=== PATIENT | male | born 1965 | race Caucasian/White ===

== ENCOUNTER 2016-10-12 09:54 | Outpatient (CLI) | payer BC, OTHER ==
[2016-10-12 13:28] LABS: BASOPHILS % (AUTO) 0.4 %; EOSINOPHILS # (AUTO) 0.2 10^3/uL (0.0-0.7); EOSINOPHILS % (AUTO) 3.4 %; HCT - HEMATOCRIT 43.9 % (42.0-52.0); HGB - HEMOGLOBIN 14.8 g/dL (14.0-18.0); LYMPHOCYTES # (AUTO) 1.3 10^3/uL (1.5-3.5); LYMPHOCYTES % (AUTO) 20.8 %; MEAN CORPUSCULAR HEMOGLOBIN 29.2 pg (27.0-31.0); MEAN CORPUSCULAR HGB CONC 33.7 g/dL (32.0-36.0); MEAN CORPUSCULAR VOLUME 86.6 fL (80.0-94.0); MEAN PLATELET VOLUME 8.9 fL (7.4-11.4); MONOCYTES # (AUTO) 0.5 10^3/uL (0.0-1.0); MONOCYTES % (AUTO) 7.7 %; NEUTROPHILS # (AUTO) 4.1 10^3/uL (1.5-6.6); NEUTROPHILS % (AUTO) 67.7 %; RED BLOOD COUNT 5.07 10^6/uL (4.70-6.10); RED CELL DISTRIBUTION WIDTH 13.8 % (12.0-15.0)
[2016-10-12 13:35] LABS: HEMOGLOBIN A1C 0.62 g/dL
[2016-10-12 13:55] LABS: ALBUMIN/GLOBULIN RATIO 2.4 (1.0-2.2); BILIRUBIN,TOTAL 0.9 mg/dL (0.2-1.0); BUN - BLOOD UREA NITROGEN 14 mg/dL (6-20); CALCIUM 9.4 mg/dL (8.5-10.3); CARBON DIOXIDE - CO2 28 mmol/L (21-32); CHLORIDE 102 mmol/L (101-111); CHOL/HDL RATIO 5.9 (<5.0); CHOLESTEROL 218 mg/dL; GFR - MDRD 78 (>89); GLUCOSE 114 mg/dL (70-100); HDL CHOLESTEROL 37 mg/dL; LDL/HDL RATIO 3.9 (<3.6); POTASSIUM 4.2 mmol/L (3.5-5.0); SODIUM 139 mmol/L (135-145); TOTAL PROTEIN 6.7 g/dL (6.7-8.2); TRIGLYCERIDES 181 mg/dL; VLDL CHOLESTEROL 36 mg/dL
[2016-10-12 13:58] LABS: THYROID STIMULATING HORMONE 5.96 uIU/mL (0.34-5.60)
== END 2016-10-12 09:55 | disposition home or self-care (01) ==
LOC: LAB.WCP 09:54
PROVIDERS: ATTEND Family Medicine
DX: R42 Dizziness and giddiness (principal); R53.83 Other fatigue; E78.5 Hyperlipidemia, unspecified
CPT/HCPCS: 36415; 80053; 80061; 83036; 84439; 84443; 84481; 85025

== ENCOUNTER 2017-08-12 08:00 | Outpatient (CLI) | payer BC, OTHER ==
[2017-08-12 12:45] LABS: BASOPHILS % (AUTO) 0.4 %; EOSINOPHILS # (AUTO) 0.1 10^3/uL (0.0-0.7); EOSINOPHILS % (AUTO) 1.7 %; HGB - HEMOGLOBIN 14.4 g/dL (14.0-18.0); LYMPHOCYTES # (AUTO) 1.2 10^3/uL (1.5-3.5); LYMPHOCYTES % (AUTO) 22.7 %; MEAN CORPUSCULAR HEMOGLOBIN 29.6 pg (27.0-31.0); MEAN CORPUSCULAR HGB CONC 34.6 g/dL (32.0-36.0); MEAN CORPUSCULAR VOLUME 85.4 fL (80.0-94.0); MEAN PLATELET VOLUME 8.4 fL (7.4-11.4); MONOCYTES # (AUTO) 0.4 10^3/uL (0.0-1.0); MONOCYTES % (AUTO) 8.4 %; NEUTROPHILS # (AUTO) 3.5 10^3/uL (1.5-6.6); NEUTROPHILS % (AUTO) 66.8 %; PLT - PLATELET COUNT 142 10^3/uL (130-450); RED BLOOD COUNT 4.87 10^6/uL (4.70-6.10); RED CELL DISTRIBUTION WIDTH 14.1 % (12.0-15.0); WHITE BLOOD COUNT 5.2 x10^3/uL (4.8-10.8)
[2017-08-12 13:07] LABS: ALBUMIN 4.6 g/dL (3.2-5.5); ALBUMIN/GLOBULIN RATIO 2.7 (1.0-2.2); ALKALINE PHOSPHATASE 36 IU/L (42-121); ALT ALANINE AMINOTRANSFERASE 53 IU/L (10-60); AST ASPARTATE AMINOTRANSFERASE 25 IU/L (10-42); BILIRUBIN,TOTAL 0.6 mg/dL (0.2-1.0); BUN - BLOOD UREA NITROGEN 19 mg/dL (6-20); CALCIUM 8.7 mg/dL (8.5-10.3); CARBON DIOXIDE - CO2 26 mmol/L (21-32); CHLORIDE 104 mmol/L (101-111); CHOL/HDL RATIO 7.5 (<5.0); CHOLESTEROL 233 mg/dL; GFR - MDRD 78 (>89); GLUCOSE 122 mg/dL (70-100); HDL CHOLESTEROL 31 mg/dL; LDL CHOLESTEROL,CALCULATED 155 mg/dL; SODIUM 137 mmol/L (135-145); THYROID STIMULATING HORMONE 6.08 uIU/mL (0.34-5.60); TOTAL PROTEIN 6.3 g/dL (6.7-8.2); VLDL CHOLESTEROL 47 mg/dL
[2017-08-12 14:09] LABS: FREE T4 (FREE THYROXINE) 0.64 ng/dL (0.58-1.64)
== END 2017-08-12 08:01 | disposition home or self-care (01) ==
LOC: LAB.WCP 08:00
PROVIDERS: ATTEND Family Medicine
DX: R63.5 Abnormal weight gain (principal); R53.83 Other fatigue; R41.3 Other amnesia
CPT/HCPCS: 36415; 80053; 80061; 81599; 82607; 83721; 83921; 84402; 84403; 84439; 84443; 85025

== ENCOUNTER 2018-05-24 15:42 | Outpatient (CLI) | payer BC, OTHER | END 2018-05-24 15:43 | disposition home or self-care (01) | LOC: SC 15:42 | PROVIDERS: ATTEND Nurse Practitioner Family | DX: G47.33 Obstructive sleep apnea (adult) (pediatric) (principal); R23.8 Other skin changes; R03.0 Elevated blood-pressure reading, without diagnosis of hypertension | CPT/HCPCS: 99212; 99215 ==

== ENCOUNTER 2018-07-26 15:46 | Outpatient (CLI) | payer BC, OTHER | END 2018-07-26 15:47 | disposition home or self-care (01) | LOC: SC 15:46 | PROVIDERS: ATTEND Nurse Practitioner Family | DX: G47.33 Obstructive sleep apnea (adult) (pediatric) (principal); I10 Essential (primary) hypertension | CPT/HCPCS: 99212; 99214 ==

== ENCOUNTER 2018-11-17 07:12 | Outpatient (CLI) | payer BC, OTHER ==
[2018-11-17 12:30] LABS: BASOPHILS % (AUTO) 0.7 %; EOSINOPHILS # (AUTO) 0.2 10^3/uL (0.0-0.7); EOSINOPHILS % (AUTO) 2.8 %; HGB - HEMOGLOBIN 14.2 g/dL (14.0-18.0); LYMPHOCYTES # (AUTO) 1.3 10^3/uL (1.5-3.5); LYMPHOCYTES % (AUTO) 22.2 %; MEAN CORPUSCULAR HEMOGLOBIN 28.6 pg (27.0-31.0); MEAN CORPUSCULAR HGB CONC 31.9 g/dL (32.0-36.0); MEAN CORPUSCULAR VOLUME 89.7 fL (80.0-94.0); MONOCYTES # (AUTO) 0.4 10^3/uL (0.0-1.0); MONOCYTES % (AUTO) 6.5 %; NEUTROPHILS # (AUTO) 4.1 10^3/uL (1.5-6.6); NEUTROPHILS % (AUTO) 67.5 %; PLT - PLATELET COUNT 179 10^3/uL (130-450); RED BLOOD COUNT 4.96 10^6/uL (4.70-6.10); RED CELL DISTRIBUTION WIDTH 13.9 % (12.0-15.0)
[2018-11-17 13:32] LABS: FREE T4 (FREE THYROXINE) 0.83 ng/dL (0.58-1.64)
[2018-11-17 14:15] LABS: ALBUMIN 4.2 g/dL (3.2-5.5); ALBUMIN/GLOBULIN RATIO 1.8 (1.0-2.2); ALKALINE PHOSPHATASE 52 IU/L (42-121); ALT ALANINE AMINOTRANSFERASE 38 IU/L (10-60); AST ASPARTATE AMINOTRANSFERASE 19 IU/L (10-42); BILIRUBIN,TOTAL 0.4 mg/dL (0.2-1.0); BUN - BLOOD UREA NITROGEN 19 mg/dL (6-20); CALCIUM 8.9 mg/dL (8.5-10.3); CARBON DIOXIDE - CO2 25 mmol/L (21-32); CHLORIDE 105 mmol/L (101-111); CHOL/HDL RATIO 5.5 (<5.0); CHOLESTEROL 202 mg/dL; CREATININE 0.9 mg/dL (0.6-1.2); GFR - MDRD 88 (>89); GLUCOSE 103 mg/dL (70-100); HDL CHOLESTEROL 37 mg/dL; LDL CHOLESTEROL,CALCULATED 115 mg/dL; LDL/HDL RATIO 3.1 (<3.6); SODIUM 140 mmol/L (135-145); TOTAL PROTEIN 6.5 g/dL (6.7-8.2); VLDL CHOLESTEROL 50 mg/dL
== END 2018-11-17 07:13 | disposition home or self-care (01) ==
LOC: LAB.WCP 07:12
PROVIDERS: ATTEND Family Medicine
DX: I10 Essential (primary) hypertension (principal); Z12.5 Encounter for screening for malignant neoplasm of prostate; R53.83 Other fatigue; G47.33 Obstructive sleep apnea (adult) (pediatric)
CPT/HCPCS: 36415; 80053; 80061; 83721; 84153; 84439; 84443; 85025

== ENCOUNTER 2019-03-23 12:25 | Outpatient (CLI) | payer BC, OTHER | END 2019-03-23 23:59 | disposition home or self-care (01) | LOC: LAB.R 12:25 | PROVIDERS: ATTEND Family Medicine | DX: R30.0 Dysuria (principal) | CPT/HCPCS: 87086 ==

== ENCOUNTER 2019-06-11 17:53 | Emergency (ER) | payer BC, OTHER ==
[2019-06-11 18:38] LABS: BASOPHILS % (AUTO) 0.2 %; EOSINOPHILS # (AUTO) 0.1 10^3/uL (0.0-0.7); EOSINOPHILS % (AUTO) 2.1 %; HGB - HEMOGLOBIN 15.3 g/dL (14.0-18.0); LYMPHOCYTES # (AUTO) 1.5 10^3/uL (1.5-3.5); LYMPHOCYTES % (AUTO) 26.5 %; MEAN CORPUSCULAR HEMOGLOBIN 29.4 pg (27.0-31.0); MEAN CORPUSCULAR HGB CONC 34.1 g/dL (32.0-36.0); MEAN CORPUSCULAR VOLUME 86.2 fL (80.0-94.0); MEAN PLATELET VOLUME 9.9 fL (7.4-11.4); MONOCYTES # (AUTO) 0.4 10^3/uL (0.0-1.0); MONOCYTES % (AUTO) 7.4 %; NEUTROPHILS # (AUTO) 3.6 10^3/uL (1.5-6.6); NEUTROPHILS % (AUTO) 63.1 %; PLT - PLATELET COUNT 162 10^3/uL (130-450); RED BLOOD COUNT 5.21 10^6/uL (4.70-6.10); RED CELL DISTRIBUTION WIDTH 12.9 % (12.0-15.0); WHITE BLOOD COUNT 5.7 x10^3/uL (4.8-10.8)
--- NOTE | 2019-06-11 18:48 | XRAY Report ---
Reason: Chest pain Procedure Date: 06/11/2019 Accession Number: [id number] / [id number] Procedure: XR - Chest 1 View X-Ray CPT Code: 65466 Final Report FULL RESULT: EXAM: CHEST RADIOGRAPHY EXAM DATE: 06/11/2019 06:09 PM. CLINICAL HISTORY: Chest pain. COMPARISON: None. TECHNIQUE: 1 view. FINDINGS: Lungs/Pleura: No focal opacities evident. No pleural effusion. No pneumothorax. Mediastinum: Within exam limitations, the cardiomediastinal contour is normal. Other: None. IMPRESSION: Normal single view chest. [facility]
[2019-06-11 18:53] LABS: ALBUMIN 4.5 g/dL (3.2-5.5); BILIRUBIN,TOTAL 0.8 mg/dL (0.2-1.0); CALCIUM 9.3 mg/dL (8.5-10.3); CREATININE 0.9 mg/dL (0.6-1.2); TOTAL PROTEIN 6.8 g/dL (6.7-8.2)
[2019-06-11] MEDS ORDERED: ASPIRIN CHEW 81 MG TABLET PO STA (19:52)
--- NOTE | 2019-06-11 20:00 | ED Physician Documentation ---
PD HPI CHEST PAIN - Stated complaint Stated Complaint: FRANCIS SOA - PCP REFERRAL - Chief complaint Chief Complaint: Cardiac - History obtained from History obtained from: Patient, Family - History of Present Illness Timing - details: Gradual onset, Intermittant Pain level max: 2 Pain level now: 0 Quality: Tightness Location: Substernal Radiation: No: Jaw, Neck, Back, Abdominal, Left upper extremity, Right upper extremity Improved by: Rest Worsened by: Exertion Associated symptoms: Shortness of air. No: Diaphoresis, Nausea, Vomiting, Feeling faint / dizzy, General Weakness, Palpitations, Cough Recently seen: Clinic (Today for same) - Additional information Additional information: 53-year-old male presents to the emergency department stating that he has occasional exertional chest discomfort. This is intermittent. Does not occur every time he exerts himself. Does not occur at rest. Saw his doctor today, who sent him here to be evaluated at the troponin for an abnormal EKG. Does not have any old EKGs available. Patient is not currently on in the antiplatelet medications. Patient has been asymptomatic all day today. Currently is asymptomatic as well. Review of Systems Constitutional: denies: Fever, Chills GI: denies: Vomiting, Diarrhea Skin: denies: Rash Musculoskeletal: denies: Neck pain, Back pain Neurologic: denies: Headache PD PAST MEDICAL HISTORY - Past Medical History Cardiovascular: High cholesterol Respiratory: None Endocrine/Autoimmune: None GI: None : None HEENT: None Psych: None Musculoskeletal: None Derm: None - Past Surgical History General: Appendectomy HEENT: Tonsil/Adenoidectomy - Present Medications Home Medications: Ambulatory Orders Medication Instructions Recorded Confirmed Simvastatin [Zocor] 20 mg PO QPM 10/23/13 07/09/15 Meclizine [Antivert] 25 mg PO Q6H PRN #20 tablet 07/09/15 Ondansetron Odt [Zofran] 4 mg TL Q6H PRN #10 tablet 07/09/15 - Allergies Allergies/Adverse Reactions: Allergies Allergy/AdvReac Type Severity Reaction Status Date / Time No Known Drug Allergies Allergy Verified 06/11/19 18:02 - Social History Does the pt smoke?: No Smoking Status: Never smoker Does the pt drink ETOH?: No Does the pt have substance abuse?: No PD ED PE NORMAL - Vitals Vital signs reviewed: Yes - General General: Alert and oriented X 3, No acute distress, Well developed/nourished - HEENT HEENT: Moist mucous membranes - Neck Neck: Supple, no meningeal sign - Cardiac Cardiac: RRR, No murmur, Strong equal pulses - Respiratory Respiratory: No respiratory distress, Clear bilaterally - Abdomen Abdomen: Soft, Non tender, Non distended - Derm Derm: Warm and dry - Neuro Neuro: Alert and oriented X 3 - Psych Psych: Normal mood, Normal affect Results - Vitals Vitals: Vital Signs - 24 hr 06/11/19 17:58 Temperature 36.5 C Heart Rate 66 Respiratory 18 Rate Blood Pressure 164/97 H O2 Saturation 97 Oxygen O2 Source Room air - EKG (time done) 1956 Rate: Rate (enter#) (62) Rhythm: NSR [place]: Normal QRS: Normal Ischemia: ST elevation c/w repol (J-point elevation V2 V3) Compare to prior EKG: Old EKG unavailable - Labs Labs: Laboratory Tests 06/11/19 06/11/19 06/11/19 18:26 18:26 18:26 WBC 5.7 RBC 5.21 Hgb 15.3 Hct 44.9 MCV 86.2 MCH 29.4 MCHC 34.1 RDW 12.9 Plt Count 162 MPV 9.9 Neut # (Auto) 3.6 Lymph # (Auto) 1.5 [place] # (Auto) 0.4 Eos # (Auto) 0.1 Baso # (Auto) 0.0 Absolute Nucleated RBC 0.00 Nucleated RBC % 0.0 Sodium 139 Potassium 3.7 Chloride 102 Carbon Dioxide 26 Anion Gap 11.0 BUN 16 Creatinine 0.9 Estimated GFR (MDRD) 88 L Glucose 139 H Calcium 9.3 Total Bilirubin 0.8 AST 24 ALT 53 Alkaline Phosphatase 39 L Troponin I High Sens 3.3 Total Protein 6.8 Albumin 4.5 Globulin 2.3 Albumin/Globulin Ratio 2.0 Lipase 31 - Rads (name of study) Chest x-ray Radiology: Prelim report reviewed, EMP read contemporaneously, See rad report (No acute disease) PD MEDICAL DECISION MAKING - ED course Complexity details: reviewed results, re-evaluated patient, considered differential (No ST elevation OK, no aortic dissection, no PE, no tension pneumothorax, no aortic aneurysm), d/w patient, d/w family ED course: 53-year-old male with what sounds like stable angina. Negative troponin. He was prescribed nitroglycerin by his doctor earlier today. We will start him on aspirin as well. We will have him follow-up closely with his doctor for cardiac stress test. He states that he is already being referred for this. He is also being referred to cardiology. Counseled to avoid strenuous activity and to return if his symptoms recur or worsen. Patient counseled regarding signs and symptoms for which I believe and urgent re-evaluation would be necessary. Patient with good understanding of and agreement to plan and is comfortable going home at this time This document was made in part using voice recognition software. While efforts are made to proofread this document, sound alike and grammatical errors may corwinu r. Departure - Departure Disposition: 01 Home, Self Care Clinical Impression: Chest pain Qualifiers: Chest pain type: unspecified Qualified Code(s): R07.9 - Chest pain, unspecified Condition: Good Instructions: ED Chest Pain Angina Stable Follow-Up: Lazaro Zapien MD [Primary Care Provider] - Within 3 Days Comments: You should start on an 81 mg aspirin daily, or a 325 mg aspirin daily. You also need a cardiac stress test within the next few days. This can be ordered by your doctor. Avoid any strenuous activity. If you experience worsening chest pain or chest pain at rest, you need to be reevaluated in the ER
[2019-06-11 20:31] VITALS: BP 157/107
== END 2019-06-11 20:14 | disposition home or self-care (01) ==
LOC: ED 17:53
DX: R07.9 Chest pain, unspecified (principal)
CPT/HCPCS: 36415; 71045; 80053; 83690; 84484; 85025; 93005; 99284; A9270

== ENCOUNTER 2020-01-25 16:00 | Outpatient (CLI) | payer BC, OTHER | END 2020-01-25 23:59 | disposition home or self-care (01) | LOC: LAB.R 16:00 | PROVIDERS: ATTEND Family Medicine | DX: R05 Cough (principal) ==

== ENCOUNTER 2021-04-04 12:34 | Outpatient (CLI) | payer BC, OTHER ==
[2021-04-04] MEDS ORDERED: IOVERSOL 320 100 ML VIAL IVP ONE ×2 (12:48→14:23)
[2021-04-04 13:05] LABS: CALCIUM 9.1 mg/dL (8.5-10.3); CREATININE 0.8 mg/dL (0.6-1.2)
--- NOTE | 2021-04-04 21:06 | CT Report ---
PROCEDURE: ABDOMEN/PELVIS W/WO INDICATIONS: HEMATURIA CONTRAST: IV CONTRAST: Optiray 320 ml: 140 PO CONTRAST: *NO PO CONTRAST TECHNIQUE: Noncontrast 5 mm thick sections acquired from the diaphragms to the symphysis. 5 mm coronal and sagi ttal reformats were then performed. After the administration of oral and intravenous contrast, 5 mm thick sections acquired from the diaphragms to the symphysis. 5 mm thick coronal and sagittal reform ats were acquired. For radiation dose reduction, the following was used: automated exposure control , adjustment of mA and/or kV according to patient size. COMPARISON: None. FINDINGS: Image quality: Excellent. Lung bases: There is mild scarring within the left lingula inferiorly. Heart size is normal. Urinary system: The kidneys demonstrate no nephrolithiasis or hydronephrosis. There is minimal perine phric stranding bilaterally. There is symmetric bilateral renal enhancement. Renal calyces appear n ormal in morphology when filled with contrast without suspicious filling defects. Opacified portions of both ureters demonstrate normal caliber. Bladder wall thickness is normal. No calcified bladder stones. Other solid organs: Evaluation of the liver demonstrates no focal hepatic lesions. Gallbladder appea rs within normal limits without calcified gallstones. Biliary system is non dilated. The spleen is n ormal in size. Pancreas enhances normally without peripancreatic fat stranding or fluid collections. No adrenal nodules. Peritoneum and bowel: Small bowel loops demonstrate normal wall thickness and caliber. There are segm ents of mild colonic wall thickening throughout the colon with minimal pericolonic fat stranding comp atible with a mild colitis. No free fluid or air. Nodes and vessels: No retroperitoneal or mesenteric adenopathy by size criteria. Aorta and inferior vena cava are normal in size. Abdominal wall: No ventral hernias. Pelvis: No pathologic free pelvic fluid. No inguinal hernias or adenopathy. Bones: No suspicious bony lesions. No vertebral body compression fractures. IMPRESSION: 1. No evidence of nephrolithiasis or suspicious filling defects in the renal collecting systems. Reviewed by: Preet Hubbard MD on 04/04/2021 8:05 PM [facility] Approved by: Preet Hubbard MD on 04/04/2021 8:05 PM [facility] Station ID: [id number]
== END 2021-04-04 12:35 | disposition home or self-care (01) ==
LOC: LAB 12:34
PROVIDERS: ATTEND Family Medicine
DX: R31.9 Hematuria, unspecified (principal)
CPT/HCPCS: 36415; 74178; 80048; Q9967

== ENCOUNTER 2022-12-14 07:35 | Outpatient (CLI) | payer BC, OTHER ==
[2022-12-14 12:21] LABS: BASOPHILS % (AUTO) 0.7 %; EOSINOPHILS # (AUTO) 0.2 10^3/uL (0.0-0.7); EOSINOPHILS % (AUTO) 3.3 %; HCT - HEMATOCRIT 42.8 % (42.0-52.0); HGB - HEMOGLOBIN 14.1 g/dL (14.0-18.0); LYMPHOCYTES # (AUTO) 1.3 10^3/uL (1.5-3.5); MEAN CORPUSCULAR HEMOGLOBIN 28.3 pg (27.0-31.0); MEAN CORPUSCULAR HGB CONC 32.9 g/dL (32.0-36.0); MEAN CORPUSCULAR VOLUME 85.9 fL (80.0-94.0); MEAN PLATELET VOLUME 10.1 fL (7.4-11.4); MONOCYTES # (AUTO) 0.4 10^3/uL (0.0-1.0); MONOCYTES % (AUTO) 7.7 %; NEUTROPHILS # (AUTO) 3.5 10^3/uL (1.5-6.6); NEUTROPHILS % (AUTO) 65.1 %; PLT - PLATELET COUNT 153 10^3/uL (130-450); RED BLOOD COUNT 4.98 10^6/uL (4.70-6.10); RED CELL DISTRIBUTION WIDTH 13.2 % (12.0-15.0); WHITE BLOOD COUNT 5.4 x10^3/uL (4.8-10.8)
[2022-12-14 12:31] LABS: ESTIMATED AVERAGE GLUCOSE 272 mg/dL (70-100); HEMOGLOBIN A1c% 11.1 % (4.27-6.07)
[2022-12-14 12:35] LABS: ALBUMIN 4.4 g/dL (3.2-5.5); ALBUMIN/GLOBULIN RATIO 2.3 (1.0-2.2); ALKALINE PHOSPHATASE 48 IU/L (42-121); ALT ALANINE AMINOTRANSFERASE 53 IU/L (10-60); AST ASPARTATE AMINOTRANSFERASE 35 IU/L (10-42); BILIRUBIN,TOTAL 0.8 mg/dL (0.2-1.0); BUN - BLOOD UREA NITROGEN 12 mg/dL (6-20); CALCIUM 9.2 mg/dL (8.5-10.3); CARBON DIOXIDE - CO2 31 mmol/L (21-32); CHLORIDE 102 mmol/L (101-111); CHOL/HDL RATIO 3.5 (<5.0); CHOLESTEROL 118 mg/dL; CREATININE 0.9 mg/dL (0.6-1.3); GFR - MDRD 86 (>89); GLUCOSE 224 mg/dL (74-104); HDL CHOLESTEROL 34 mg/dL; LDL CHOLESTEROL,CALCULATED 61 mg/dL; LDL/HDL RATIO 1.8 (<3.6); POTASSIUM 4.2 mmol/L (3.5-4.5); SODIUM 137 mmol/L (135-145); TOTAL PROTEIN 6.3 g/dL (6.4-8.9); TRIGLYCERIDES 116 mg/dL (48-352); VLDL CHOLESTEROL 23 mg/dL
== END 2022-12-14 07:36 | disposition home or self-care (01) ==
LOC: LAB.N 07:35
PROVIDERS: ATTEND Physician Assistant
DX: I10 Essential (primary) hypertension (principal); Z79.899 Other long term (current) drug therapy; R73.01 Impaired fasting glucose; Z12.5 Encounter for screening for malignant neoplasm of prostate; E78.5 Hyperlipidemia, unspecified
CPT/HCPCS: 36415; 80053; 80061; 83036; 83721; 84153; 85025

== ENCOUNTER 2023-04-27 09:27 | Outpatient (CLI) | payer BC, OTHER ==
[2023-04-27 11:50] LABS: BASOPHILS % (AUTO) 0.5 %; EOSINOPHILS # (AUTO) 0.1 10^3/uL (0.0-0.7); HCT - HEMATOCRIT 47.6 % (42.0-52.0); HGB - HEMOGLOBIN 15.6 g/dL (14.0-18.0); LYMPHOCYTES # (AUTO) 1.2 10^3/uL (1.5-3.5); LYMPHOCYTES % (AUTO) 21.2 %; MEAN CORPUSCULAR HEMOGLOBIN 28.3 pg (27.0-31.0); MEAN CORPUSCULAR HGB CONC 32.8 g/dL (32.0-36.0); MEAN CORPUSCULAR VOLUME 86.2 fL (80.0-94.0); MEAN PLATELET VOLUME 10.4 fL (7.4-11.4); MONOCYTES # (AUTO) 0.4 10^3/uL (0.0-1.0); MONOCYTES % (AUTO) 7.4 %; NEUTROPHILS # (AUTO) 3.8 10^3/uL (1.5-6.6); NEUTROPHILS % (AUTO) 68.5 %; PLT - PLATELET COUNT 152 10^3/uL (130-450); RED BLOOD COUNT 5.52 10^6/uL (4.70-6.10); RED CELL DISTRIBUTION WIDTH 13.9 % (12.0-15.0); WHITE BLOOD COUNT 5.5 x10^3/uL (4.8-10.8)
[2023-04-27 12:08] LABS: ALBUMIN 4.6 g/dL (3.2-5.5); ALBUMIN/GLOBULIN RATIO 3.1 (1.0-2.2); BILIRUBIN,TOTAL 0.6 mg/dL (0.2-1.0); CALCIUM 9.2 mg/dL (8.5-10.3); CREATININE 0.9 mg/dL (0.6-1.3); POTASSIUM 4.6 mmol/L (3.5-4.5); TOTAL PROTEIN 6.1 g/dL (6.4-8.9)
[2023-04-27 12:17] LABS: ESTIMATED AVERAGE GLUCOSE 174 mg/dL (70-100); HEMOGLOBIN A1c% 7.7 % (4.27-6.07)
[2023-04-27 12:24] LABS: CREATININE,URINE 50.8 mg/dL; MICROALBUM/CREATININE RATIO,UR 13.8 ug/mg (<30.0); MICROALBUMIN,URINE 0.7 mg/dL
== END 2023-04-27 09:28 | disposition home or self-care (01) ==
LOC: LAB.N 09:27
PROVIDERS: ATTEND Physician Assistant
DX: E11.65 Type 2 diabetes mellitus with hyperglycemia (principal); B35.1 Tinea unguium
CPT/HCPCS: 36415; 80053; 82043; 82570; 83036; 85025

== ENCOUNTER 2023-07-27 07:45 | Outpatient (CLI) | payer BC, OTHER ==
--- NOTE | 2023-07-27 10:42 | XRAY Report ---
PROCEDURE: Shoulder 2+V RT INDICATIONS: SHOULDER PAIN, RIGHT TECHNIQUE: 3 views of the shoulder were acquired. COMPARISON: None. FINDINGS: Bones: No fractures or dislocations. Moderate acromioclavicular joint osteoarthritic changes are se en. No suspicious bony lesions. Visualized ribs appear intact. Soft tissues: No suspicious soft tissue calcifications. The visualized lungs are within normal limi ts. IMPRESSION: No acute bony abnormality. Moderate acromioclavicular joint osteoarthritis. No gross soft tissue abnormalities. Reviewed by: Delon Young MD on 07/27/2023 10:41 AM PDT Approved by: Delon Young MD on 07/27/2023 10:41 AM PDT Station ID: [id number]
--- NOTE | 2023-07-27 11:04 | XRAY Report ---
PROCEDURE: AC Joints INDICATIONS: SHOULDER PAIN, RIGHT TECHNIQUE: 2 views each of both acromioclavicular joints were acquired. COMPARISON: Shoulder radiograph on the same day. FINDINGS: Bones: No fractures or dislocations. Weightbearing views demonstrate normal acromioclavicular joint alignment as well. Right worse than left bilateral acromioclavicular joint osteoarthritic changes a re seen with joint space narrowing, subchondral sclerosis and marginal osteophyte. No suspicious bony lesions. Superior ribs appear normal. Soft tissues: No suspicious soft tissue calcifications. IMPRESSION: Right worse than left bilateral acromioclavicular joint osteoarthritis. No fracture or d islocation. No gross soft tissue abnormalities. Reviewed by: Delon Young MD on 07/27/2023 11:02 AM PDT Approved by: Delon Young MD on 07/27/2023 11:02 AM PDT Station ID: [id number]
== END 2023-07-27 08:00 | disposition home or self-care (01) ==
LOC: DI.N 07:45
PROVIDERS: ATTEND Family Medicine
DX: M19.011 Primary osteoarthritis, right shoulder (principal)

== ENCOUNTER 2023-08-30 07:21 | Outpatient (CLI) | payer BC, OTHER ==
[2023-08-30 12:31] LABS: CALCIUM 9.7 mg/dL (8.5-10.3); POTASSIUM 4.6 mmol/L (3.5-4.5)
[2023-08-30 12:42] LABS: ESTIMATED AVERAGE GLUCOSE 180 mg/dL (70-100); HEMOGLOBIN A1c% 7.9 % (4.27-6.07)
== END 2023-08-30 07:22 | disposition home or self-care (01) ==
LOC: LAB.N 07:21
PROVIDERS: ATTEND Physician Assistant
DX: E11.65 Type 2 diabetes mellitus with hyperglycemia (principal)
CPT/HCPCS: 36415; 80048; 83036